=== PATIENT | female | born 1945 | race Caucasian/White ===

== ENCOUNTER 2018-04-27 15:33 | Emergency (ER) | payer OTHER, MEDICAID ==
[2018-04-27] MEDS: SOD CHLORIDE 0.9% 1,000 ML IV (15:58)
[2018-04-27] MEDS: ACETAMINOPHEN 500 MG TAB PO (16:02)
[2018-04-27 16:10] LABS: WHITE BLOOD COUNT 7.8 10^3/ul (4.8-10.8)
[2018-04-27 16:10] LABS: HEMATOCRIT 42.1 % (37.0-47.0); HEMOGLOBIN 13.9 g/dl (12.0-16.0); MEAN CORPUSCULAR HEMOGLOBIN 31.4 pg (29.0-33.0); MEAN CORPUSCULAR VOLUME 95.2 fl (82.0-101.0); MEAN PLATELET VOLUME 11.2 fl (7.4-10.4); PLATELET COUNT 209 10^3/UL (140-415); RED BLOOD COUNT 4.42 10^6/ul (4.20-5.40); RED CELL DISTRIBUTION WIDTH 12.7 % (11.5-14.5)
[2018-04-27 16:13] LABS: ADD MAN DIFF? YES
[2018-04-27 16:42] LABS: INR 0.94; PARTIAL THROMBOPLASTIN TIME 23.5 Sec (25.0-35.0); PROTIME 12.7 Sec (11.9-14.9)
[2018-04-27] MEDS: SOD CHLORIDE 0.9% 100 ML (17:06)
[2018-04-27] MEDS: IOHEXOL 100 ML (17:06)
[2018-04-27 17:20] LABS: ANION GAP 15 (8-16); BLOOD UREA NITROGEN 13 mg/dl (7-20); CALCIUM 8.7 mg/dl (8.4-10.2); CARBON DIOXIDE 29 mmol/L (21-31); CHLORIDE 105 mmol/L (97-110); CREATININE 0.73 mg/dl (0.44-1.00); GLUCOSE 274 mg/dl (70-220); POTASSIUM 3.6 mmol/L (3.5-5.1); SODIUM 145 mmol/L (135-144)
[2018-04-27 17:33] LABS: TROPONIN-I < 0.010 ng/ml (0.000-0.120)
[2018-04-27 18:38] LABS: ANISOCYTOSIS 1+ (0-0); BAND NEUTROPHILS % (M) 1 % (0-4); BASOPHILS % (M) 1 % (0-2); EOSINOPHILS % (M) 3 % (0-7); LYMPHOCYTES #M 3.1 10^3/ul (0.8-2.9); LYMPHOCYTES % (M) 40 % (15-51); MICROCYTOSIS 1+ (0-0); MONOCYTE #M 0.2 10^3/ul (0.3-0.9); MONOCYTES % (M) 3 % (0-11); PLATELET ESTIMATE NORMAL; POLYCHROMASIA 1+ (0-0); REACTIVE LYMPHOCYTES% (M) 14 % (0-0); SEGMENTED NEUTROPHILS (M) % 38 % (39-77); SMUDGE%M 3 % (0-0)
== END 2018-04-27 19:24 | disposition home or self-care (01) ==
LOC: E/R 15:33
DX: R53.1 Weakness (principal); R51 Headache; R42 Dizziness and giddiness; E11.9 Type 2 diabetes mellitus without complications; I10 Essential (primary) hypertension; R55 Syncope and collapse; Z79.84 Long term (current) use of oral hypoglycemic drugs; Z98.61 Coronary angioplasty status
CPT/HCPCS: 36415; 70450; 70496; 70498; 80048; 84484; 85025; 85610; 85730; 99285-25

== ENCOUNTER 2019-03-13 13:53 | Emergency (ER) | payer OTHER, MEDICAID, MEDICARE ==
[2019-03-13] MEDS: MECLIZINE 12.5 MG TAB PO (14:05)
[2019-03-13] MEDS: ONDANSETRON (ODT) 4 MG TAB ODT (14:05)
[2019-03-13] MEDS: LORAZEPAM 1 MG TAB PO (14:05)
[2019-03-13] MEDS: ACETAMINOPHEN 325 MG TAB PO (14:58)
[2019-03-13] MEDS: IBUPROFEN 800 MG TAB PO (15:44)
== END 2019-03-13 15:54 | disposition home or self-care (01) ==
LOC: E/R 13:53
DX: R42 Dizziness and giddiness (principal); I10 Essential (primary) hypertension; E11.9 Type 2 diabetes mellitus without complications; I25.10 Atherosclerotic heart disease of native coronary artery without angina pectoris; Z79.84 Long term (current) use of oral hypoglycemic drugs; Z98.61 Coronary angioplasty status
CPT/HCPCS: 82962; 93005; 99283-25